=== PATIENT | male | born 1980 | race Caucasian/White ===

== ENCOUNTER 2017-01-17 21:00 | Emergency (ER) | payer BC ==
[2017-01-17 21:20] VITALS: BP 174/102; PULSE 92; RESP 18; TEMP 98.6
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
== END 2017-01-17 22:03 | disposition home or self-care (01) ==
LOC: EC 21:00
DX: S42.001A Fracture of unspecified part of right clavicle, initial encounter for closed fracture (principal); Z87.891 Personal history of nicotine dependence; Z98.890 Other specified postprocedural states; V48.9XXA Unspecified car occupant injured in noncollision transport accident in traffic accident, initial encounter; Y92.410 Unspecified street and highway as the place of occurrence of the external cause
CPT/HCPCS: 99284

== ENCOUNTER 2020-12-14 14:01 | Emergency (ER) | payer BC, OTHER ==
[2020-12-14 14:16] VITALS: TEMP 98.2
[2020-12-14] MEDS ORDERED: SODIUM CHLORIDE 0.9% 1,000 ML IV STA (14:48)
[2020-12-14] MEDS ORDERED: HYDROcodone/APAP 5-325MG 1 EACH TAB PO STA (14:49)
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
--- NOTE | 2020-12-14 15:59 | XR ---
AP pelvis HISTORY: Trauma and pain Single frontal view the pelvis There is joint space loss, marginal spurring, subchondral sclerosis and possible geode formation righ t hip greater than left. Alignment is maintained. Probable phleboliths in the pelvis. IMPRESSION: No acute fracture or dislocation. Osteoarthritis.
[2020-12-14 16:02] LABS: Appearance,Urine Clear (Clear); Bilirubin,Urine Negative (Negative); Blood,Urine Negative (Negative); Color,Urine Yellow; Glucose,Urine (UA) Negative (Negative); Ketones,Urine Negative (Negative); Leukocyte Esterase,Urine Negative (Negative); Nitrite,Urine Negative (Negative); PH, Urine 6.5 (5.0-8.0); Protein,Urine Negative (Negative); Specific Gravity,Urine 1.018 (1.001-1.035); Urobilinogen,Urine <2.0 mg/dL (<2.0)
[2020-12-14 16:05] LABS: Basophils % (A) 0 %; Eosinophils # (A) 0.2 k/uL (0-0.7); Eosinophils % (A) 4 %; HCT 46.3 % (39.0-53.0); HGB 16.4 gm/dL (13.0-17.5); Lymphocytes # (A) 1.1 k/uL (1.0-4.8); Lymphocytes % (A) 22 %; MCH 31.8 pg (25.0-35.0); MCHC 35.4 g/dL (31.0-37.0); MCV 89.8 fL (80.0-100.0); Mean Platelet Volume 7.2; Monocytes # (A) 0.3 k/uL (0-1.0); Monocytes % (A) 6 %; Neutrophils # (A) 3.5 k/uL (1.3-7.7); Neutrophils % (A) 67 %; Platelet Count 281 k/uL (150-450); RBC 5.16 m/uL (4.30-5.90); RDW 12.6 % (11.5-15.5); WBC 5.2 k/uL (3.8-10.6)
[2020-12-14 16:06] LABS: ALT 42 U/L (4-49); AST 48 U/L (17-59); African American GFR (CKD) >90 (>60 ml/min/1.73 sqM); Albumin 4.9 g/dL (3.5-5.0); Alkaline Phosphatase 123 U/L (38-126); Anion Gap 12 mmol/L; Blood Urea Nitrogen 12 mg/dL (9-20); Calcium 10.3 mg/dL (8.4-10.2); Carbon Dioxide 25 mmol/L (22-30); Chloride 101 mmol/L (98-107); Glucose 105 mg/dL (74-99); Non-African American GFR(CKD) >90 (>60 ml/min/1.73 sqM); Potassium 4.5 mmol/L (3.5-5.1); Sodium 138 mmol/L (137-145); Total Bilirubin 0.5 mg/dL (0.2-1.3); Total Protein 7.6 g/dL (6.3-8.2)
[2020-12-14 16:12] LABS: INR 0.9 (<1.2); Partial Thromboplastin Time 23.5 sec (22.0-30.0); Prothrombin Time 10.2 sec (9.0-12.0)
[2020-12-14 16:39] VITALS: RESP 16
[2020-12-14] MEDS ORDERED: lisinopriL 10 MG TAB PO STA (16:45)
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
[2020-12-14] MEDS ORDERED: ACET/COD 300 MG/30 MG STARTER PACK 6 TAB BTL PO STA (17:34)
[2020-12-14 17:47] VITALS: BP 182/110; PULSE 75
== END 2020-12-14 18:06 | disposition home or self-care (01) ==
LOC: EC 14:01
DX: S40.022A Contusion of left upper arm, initial encounter (principal); S30.1XXA Contusion of abdominal wall, initial encounter; S40.811A Abrasion of right upper arm, initial encounter; S80.812A Abrasion, left lower leg, initial encounter; S80.811A Abrasion, right lower leg, initial encounter; F17.200 Nicotine dependence, unspecified, uncomplicated; I10 Essential (primary) hypertension; J45.909 Unspecified asthma, uncomplicated; V89.2XXA Person injured in unspecified motor-vehicle accident, traffic, initial encounter; Y92.89 Other specified places as the place of occurrence of the external cause
CPT/HCPCS: 36415; 93005; 86900; 86901; 80053; 84484; 85025; 85610; 85730; 86850; 81003; 72170; 71045; 74177; 99285; 96360; 96361; Q9967

== ENCOUNTER 2022-02-18 23:53 | Emergency (ER) | payer BC, OTHER ==
--- NOTE | 2022-02-19 00:39 | XR ---
EXAMINATION TYPE: XR ribs RT w pa chest xray DATE OF EXAM: 02/19/2022 COMPARISON: NONE HISTORY: Fall. Pain TECHNIQUE: 6 views FINDINGS: Heart and mediastinum are normal. Lungs are clear of infiltrate. No pleural effusion or pne umothorax. The right ribs appear intact. IMPRESSION: Normal chest. Normal right ribs.
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
[2022-02-19] MEDS ORDERED: traMADol 50 MG STARTER PACK 3 TAB BTL PO STA (01:23)
[2022-02-19 01:29] VITALS: BP 140/78; PULSE 77; RESP 18; TEMP 98.3
== END 2022-02-19 01:35 | disposition home or self-care (01) ==
LOC: EC 23:53
DX: S20.211A Contusion of right front wall of thorax, initial encounter (principal); F10.129 Alcohol abuse with intoxication, unspecified; F17.200 Nicotine dependence, unspecified, uncomplicated; J45.909 Unspecified asthma, uncomplicated; I10 Essential (primary) hypertension; W11.XXXA Fall on and from ladder, initial encounter; Y92.009 Unspecified place in unspecified non-institutional (private) residence as the place of occurrence of the external cause
CPT/HCPCS: 99283

== ENCOUNTER 2022-04-22 13:29 | Emergency (ER) | payer OTHER ==
--- NOTE | 2022-04-22 14:30 | XR ---
EXAMINATION TYPE: XR chest 2V DATE OF EXAM: 04/22/2022 COMPARISON: 02/19/2022 HISTORY: Chest pain TECHNIQUE: 2 views FINDINGS: Heart and mediastinum are normal. Lungs are clear. Diaphragm is normal. Bony thorax appears normal. IMPRESSION: Normal chest. No change.
--- NOTE | 2022-04-22 14:33 | XR ---
EXAMINATION TYPE: XR shoulder complete LT DATE OF EXAM: 04/22/2022 COMPARISON: NONE HISTORY: Chest pain. Shoulder pain TECHNIQUE: 3 view FINDINGS: There is no evidence of fracture nor dislocation. Glenohumeral joint is intact. No patholog ic calcification. IMPRESSION: Negative left shoulder exam. No fracture.
[2022-04-22] MEDS ORDERED: KETOROLAC 15 MG/ML 1 ML VIAL IM STA (15:25)
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
[2022-04-22] MEDS ORDERED: IBUPROFEN 800 MG TAB PO STA (15:52)
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
[2022-04-22 16:58] VITALS: BP 173/98; PULSE 79; RESP 18; TEMP 99.1
== END 2022-04-22 16:58 | disposition home or self-care (01) ==
LOC: EC 13:29
DX: M25.512 Pain in left shoulder (principal); I10 Essential (primary) hypertension; J45.909 Unspecified asthma, uncomplicated; F17.200 Nicotine dependence, unspecified, uncomplicated; F10.10 Alcohol abuse, uncomplicated; F12.90 Cannabis use, unspecified, uncomplicated; Y04.8XXA Assault by other bodily force, initial encounter
CPT/HCPCS: 70450; 71046; 71250; 72125; 99285

== ENCOUNTER 2023-04-22 17:04 | Emergency (ER) | payer OTHER ==
[2023-04-22] MEDS ORDERED: LIDOCAINE 1% INJ 10MG/ML (20 ML MDV) SQ ONE (17:24)
[2023-04-22] MEDS ORDERED: IBUPROFEN 800 MG TAB PO STA (17:25)
[2023-04-22] MEDS ORDERED: DIPH,PERTUS(ACELL)TETVAC-LF 0.5 ML VIAL IM ONE (17:25)
[2023-04-22] MEDS ORDERED: AMOXIC-POT CLAV 875-125MG 1 EACH TAB PO STA (17:25)
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
[2023-04-22 17:52] VITALS: RESP 20
[2023-04-22 18:36] VITALS: BP 149/99; PULSE 81; TEMP 98.5
== END 2023-04-22 18:27 | disposition home or self-care (01) ==
LOC: EC 17:04
DX: S31.821A Laceration without foreign body of left buttock, initial encounter (principal); I10 Essential (primary) hypertension; J45.909 Unspecified asthma, uncomplicated; F12.90 Cannabis use, unspecified, uncomplicated; F17.290 Nicotine dependence, other tobacco product, uncomplicated; Z23 Encounter for immunization; W54.0XXA Bitten by dog, initial encounter
CPT/HCPCS: 90715; 99283; 90471; 12001; J2001

== ENCOUNTER 2024-03-26 13:08 | Emergency (ER) | payer OTHER ==
[2024-03-26 14:08] VITALS: TEMP 98.8
[2024-03-26 15:22] LABS: Basophils % (A) 0 %; Eosinophils # (A) 0.2 k/uL (0-0.7); Eosinophils % (A) 2 %; HCT 45.9 % (39.0-53.0); HGB 15.1 gm/dL (13.0-17.5); Lymphocytes # (A) 1.1 k/uL (1.0-4.8); Lymphocytes % (A) 12 %; MCH 31.2 pg (25.0-35.0); MCHC 32.9 g/dL (31.0-37.0); MCV 94.7 fL (80.0-100.0); Mean Platelet Volume 7.2; Monocytes # (A) 0.4 k/uL (0-1.0); Monocytes % (A) 5 %; Neutrophils # (A) 7.2 k/uL (1.3-7.7); Neutrophils % (A) 80 %; Platelet Count 283 k/uL (150-450); RBC 4.85 m/uL (4.30-5.90); RDW 12.3 % (11.5-15.5)
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
[2024-03-26 15:58] LABS: ALT 25 U/L (4-49); AST 30 U/L (17-59); African American GFR (CKD) >90 (>60 ml/min/1.73 sqM); Albumin 4.2 g/dL (3.5-5.0); Alkaline Phosphatase 74 U/L (38-126); Anion Gap 7 mmol/L; Blood Urea Nitrogen 8 mg/dL (9-20); Calcium 9.5 mg/dL (8.4-10.2); Carbon Dioxide 28 mmol/L (22-30); Chloride 101 mmol/L (98-107); Glucose 103 mg/dL (74-99); Non-African American GFR(CKD) >90 (>60 ml/min/1.73 sqM); Potassium 4.4 mmol/L (3.5-5.1); Sodium 136 mmol/L (137-145); Total Bilirubin 0.6 mg/dL (0.2-1.3); Total Protein 6.8 g/dL (6.3-8.2)
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
--- NOTE | 2024-03-26 16:09 | XR ---
EXAMINATION TYPE: XR foot complete RT DATE OF EXAM: 03/26/2024 4:02 PM CLINICAL INDICATION: Male, 43 years old with history of pain; [facility] COMPARISON: None TECHNIQUE: XR foot complete RT examined in the AP, oblique, and lateral projections. FINDINGS: No evidence of any acute osseous pathology. Calcaneal plantar spurring is present. Bipartite lateral sesamoid of the first digit. IMPRESSION: No evidence of acute fracture. [facility], , 03/26/2024 4:07 PM
[2024-03-26 18:20] VITALS: BP 165/100; PULSE 82; RESP 16
== END 2024-03-26 18:45 | disposition other institution (70) ==
LOC: EC 13:08
CPT/HCPCS: 36415; 70450; 74177; 80053; 85025; 99285

== ENCOUNTER → 2024-06-25 | Outpatient (CLI) | payer OTHER ==
--- NOTE | 2024-06-25 13:18 | XR ---
EXAMINATION TYPE: XR chest 2V DATE OF EXAM: 06/25/2024 12:45 PM COMPARISON: Chest radiographs from CLINICAL INDICATION: Male, 43 years old with history of R05.1 Acute cough; [facility] TECHNIQUE: XR chest 2V Frontal and lateral views of the chest. FINDINGS: Lungs/Pleura: There is no evidence of pleural effusion, focal consolidation, or pneumothorax. Pulmonary vascularity: Unremarkable. Heart/mediastinum: Cardiomediastinal silhouette is unremarkable. Musculoskeletal: No acute osseous pathology. Other findings: None IMPRESSION: No acute cardiopulmonary disease/process. [facility], , 06/25/2024 1:16 PM
== END | disposition home or self-care (01) ==
LOC: RADXRMAIN 12:24
PROVIDERS: ATTEND Internal Medicine
DX: R05.1 Acute cough (principal)
CPT/HCPCS: 71046